=== PATIENT | male | born 1950 | race Asian ===

== ENCOUNTER 2018-10-26 13:31 | Emergency (ER) | payer MEDICARE, OTHER ==
[2018-10-26] MEDS: LIDOCAINE 1% (MPF) 5 ML VIAL INFIL (14:56)
== END 2018-10-26 15:32 | disposition home or self-care (01) ==
LOC: FTE 13:31
DX: K12.2 Cellulitis and abscess of mouth (principal)
CPT/HCPCS: 99283

== ENCOUNTER 2018-10-28 09:57 | Emergency (ER) | payer MEDICARE, OTHER | END 2018-10-28 10:53 | disposition home or self-care (01) | LOC: FTE 09:57 | DX: Z48.01 Encounter for change or removal of surgical wound dressing (principal) | CPT/HCPCS: 99281 ==